=== PATIENT | male | born 1975 | race Two or more races ===

== ENCOUNTER 2021-05-09 16:02 | Inpatient (IN) | payer MEDICAID ==
[~2021-05-09] VITALS: Ht 175.3 cm; Wt 60.8 kg
[2021-05-09] MEDS ORDERED: GLUCAGON HYDROCHLORIDE (RDNA) 1 MG VIAL IV ONE ×2 (16:30→20:00)
[2021-05-10] MEDS ORDERED: ONDANSETRON HCL 4 MG/2 ML VIAL IV PRN (00:30)
[2021-05-10 01:00] LABS: Basophils # (auto) 0.1 10 ^3/uL (0-0.2); Eosinophils # (auto) 0.2 10 ^3/uL (0-0.8); Eosinophils % (auto) 1.4 % (0.0-7.0); Hematocrit 47.6 % (41.0-53.0); Hemoglobin 16.3 g/dL (13.5-17.5); Lymphocytes # (auto) 1.9 10 ^3/uL (0.4-5.4); Lymphocytes % (auto) 15.5 % (10.0-50.0); Mean Corpuscular Hemoglobin 28.8 pg (28.0-32.0); Mean Corpuscular Hgb Conc. 34.3 g/dL (32.0-36.0); Mean Corpuscular Volume 83.9 fL (80.0-100.0); Monocytes # (auto) 0.7 10 ^3/uL (0-1.3); Monocytes % (auto) 5.7 % (0.0-12.0); Neutrophils # (auto) 9.5 10 ^3/uL (1.6-8.6); Neutrophils % (auto) 76.4 % (37.0-80.0); Nucleated Red Blood Cells % 0.1 %; Red Blood Cells 5.67 10^6/uL (4.5-5.90); Red Cell Distribution Width 12.7 % (11.8-14.3); White Blood Cell 12.4 10^3/uL (4.4-10.8)
[2021-05-10 01:27] LABS: Albumin 4.1 g/dL (3.4-5.0); BUN/Creatinine Ratio 20.9; Calcium 8.7 mg/dL (8.5-10.1); Potassium 3.7 mmol/L (3.5-5.1)
[2021-05-10 01:30] LABS: Bilirubin, Total 0.8 mg/dL (0.2-1.0); Total Protein 8.3 g/dL (6.4-8.2)
[2021-05-10] MEDS: SODIUM CHLORIDE 0.9% 1,000 ML IV SCH ×2 (01:41→13:50)
[2021-05-10 02:15] VITALS: BP_SYST 148; BP_SYST 149; BP_DIAS 88
[2021-05-10] MEDS ORDERED: INFLUENZA QUAD 2021-2022 0.5 ML SYRG IM ONE (02:30)
[2021-05-10 05:00] VITALS: BP 143/91
[2021-05-10 08:15] VITALS: BP 133/78
[2021-05-10 11:26] LABS: INR 1.07 (0.9-1.15); Partial Thromboplastin Time 30.5 sec (23.6-33.0)
[2021-05-10] MEDS ORDERED: LIDOCAINE VISCOUS 2% 15ML UD ONE (12:47)
[2021-05-10] MEDS ORDERED: SODIUM CHLORIDE LOCK 10 ML ONE (12:47)
[2021-05-10] MEDS ORDERED: diphenhdrAMINE HCL 50 MG/1 ML VL ONE (12:48)
[2021-05-10] MEDS: MIDAZOLAM HCL 5 MG/ML-1ML VIAL ONE ×3 (13:16→13:22)
[2021-05-10] MEDS: fentaNYL CITRATE 100 MCG/2 ML VL ONE ×3 (13:16→13:22)
[2021-05-10 13:19] VITALS: BP 139/77
[2021-05-10 14:04] VITALS: BP 133/78
[2021-05-10 14:50] VITALS: BP 127/82
== END 2021-05-10 18:20 | disposition home or self-care (01) | DRG 254 ==
LOC: ER 16:02 → EDBD 16:02 → OVERFLOW 05-10 00:28 → CENTRAL 05-10 01:10
PROVIDERS: ADMIT Nurse Practitioner; ATTEND Internal Medicine
PROC: 0DC18ZZ Extirpation of Matter from Upper Esophagus, Via Natural or Artificial Opening Endoscopic (ICD-10-PCS; 2021-05-10)
PROC: 0DB98ZX Excision of Duodenum, Via Natural or Artificial Opening Endoscopic, Diagnostic (ICD-10-PCS; principal; 2021-05-10 13:12)
DX: T18.128A Food in esophagus causing other injury, initial encounter (principal); K26.9 Duodenal ulcer, unspecified as acute or chronic, without hemorrhage or perforation; Z20.822 Contact with and (suspected) exposure to COVID-19; K20.90 Esophagitis, unspecified without bleeding; X58.XXXA Exposure to other specified factors, initial encounter; K29.80 Duodenitis without bleeding; Z86.73 Personal history of transient ischemic attack (TIA), and cerebral infarction without residual deficits; Y93.89 Activity, other specified; Y92.89 Other specified places as the place of occurrence of the external cause; Y99.8 Other external cause status
CPT/HCPCS: 36415; 43239; 43247; 70360; 80053; 85025; 85610; 85730; 87426; 96374; 96376; G0378; J2250